=== PATIENT | male | born 1930 | race Caucasian/White ===

== ENCOUNTER 2018-01-15 13:11 | Outpatient (CLI) | payer MEDICARE, OTHER ==
[~2018-01-15] VITALS: Ht 175.3 cm; Wt 75.7 kg
[2018-01-15] MEDS ORDERED: LEVO50TA8 PO (14:21)
[2018-01-15] MEDS ORDERED: ASPI-1265 PO (14:21)
[2018-01-15] MEDS ORDERED: CLOP75TA17 PO (14:21)
[2018-01-15] MEDS ORDERED: LISI40TA4 PO (14:21)
[2018-01-15 14:46] LABS: BASOPHILS % (AUTO) 0.6 % (0-1); EOSINOPHILS # (AUTO) 0.1 X10'3 (0-0.9); EOSINOPHILS % (AUTO) 1.3 % (0-6); LYMPHOCYTES # (AUTO) 1.3 X10'3 (1.1-4.8); LYMPHOCYTES % (AUTO) 17.7 % (21-51); MEAN CORPUSCULAR HEMOGLOBIN 31.4 PG (27.0-31.0); MEAN CORPUSCULAR HGB CONC 33.2 % (33.0-36.5); MEAN CORPUSCULAR VOLUME 94.4 FL (78-98); MONOCYTES # (AUTO) 0.5 X10'3 (0-0.9); MONOCYTES % (AUTO) 7.3 % (2-12); NEUTROPHILS # (AUTO) 5.5 X10'3 (1.8-7.7); NEUTROPHILS % (AUTO) 73.1 % (42-75); PRE OP HEMATOCRIT 43.2 % (42.0-52.0); PRE OP HEMOGLOBIN 14.4 g/dL (14.0-17.9); PRE OP PLATELET COUNT 271 X10'3 (140-440); RED BLOOD COUNT 4.58 X10'6 (4.70-6.10); RED CELL DISTRIBUTION WIDTH 14.8 % (11.5-14.5)
[2018-01-15 15:11] LABS: ALBUMIN 3.6 G/DL (3.4-5.0); ALKALINE PHOSPHATASE 71 IU/L (46-116); BLOOD UREA NITROGEN 30 MG/DL (7-18); BUN/CREATININE RATIO 15.5 (5.4-32.0); CALCIUM 8.9 MG/DL (8.5-10.1); CHLORIDE 106 MMOL/L (99-107); CREATININE 1.94 MG/DL (0.60-1.10); PRE OP ALT 16 U/L (30-65); PRE OP ANION GAP 6 (8-16); PRE OP AST 13 U/L (10-37); PRE OP BILIRUB, TOTAL 0.3 MG/DL (0.0-1.0); PRE OP GLUCOSE 144 MG/DL (70-104); PRE OP POTASSIUM 4.7 MMOL/L (3.4-5.1); PRE OP SODIUM 141 MMOL/L (135-145); TOTAL CARBON DIOXIDE 29.3 MMOL/L (24-32); TOTAL PROTEIN 7.3 G/DL (6.4-8.2); eGFR 33 ML/MIN
[2018-01-18] MEDS ORDERED: ringers solution, lacted 1,000 ML IV SCH (05:00)
[2018-01-18] MEDS ORDERED: famotidine 20mg tablet PO ONE (05:30)
[2018-01-18] MEDS ORDERED: ceFAZolin 1GM/D5W- ADD-VANTAGE 50 ML IV ONE (05:30)
== END 2018-01-15 23:59 | disposition home or self-care (01) ==
LOC: PRE-OP 13:11 → EDSTATUS 01-18 10:15
PROVIDERS: ATTEND Urology
DX: Z01.818 Encounter for other preprocedural examination (principal); N35.8 Other urethral stricture; I10 Essential (primary) hypertension; Z88.8 Allergy status to other drugs, medicaments and biological substances; Z86.73 Personal history of transient ischemic attack (TIA), and cerebral infarction without residual deficits
CPT/HCPCS: 36415; 80053; 84443; 85025

== ENCOUNTER 2018-03-22 10:34 | Day surgery (SDC) | payer MEDICARE, OTHER ==
[2018-03-15 15:40] LABS: BASOPHILS % (AUTO) 0.3 % (0-1); EOSINOPHILS # (AUTO) 0.2 X10'3 (0-0.9); EOSINOPHILS % (AUTO) 4.2 % (0-6); LYMPHOCYTES # (AUTO) 1.2 X10'3 (1.1-4.8); LYMPHOCYTES % (AUTO) 22.7 % (21-51); MEAN CORPUSCULAR HGB CONC 33.2 % (33.0-36.5); MEAN CORPUSCULAR VOLUME 93.1 FL (78-98); MEAN PLATELET VOLUME 8.1 FL (7.4-10.4); MONOCYTES # (AUTO) 0.5 X10'3 (0-0.9); MONOCYTES % (AUTO) 8.9 % (2-12); NEUTROPHILS # (AUTO) 3.5 X10'3 (1.8-7.7); NEUTROPHILS % (AUTO) 63.9 % (42-75); PRE OP HEMATOCRIT 38.1 % (42.0-52.0); PRE OP HEMOGLOBIN 12.6 g/dL (14.0-17.9); PRE OP PLATELET COUNT 234 X10'3 (140-440); RED BLOOD COUNT 4.09 X10'6 (4.70-6.10); RED CELL DISTRIBUTION WIDTH 15.4 % (11.5-14.5)
[2018-03-15 15:50] LABS: PRE OP INR 1.2 INR; PRE OP PROTIME 11.9 SECONDS (9.0-12.0)
[2018-03-15 15:57] LABS: ALBUMIN 3.3 G/DL (3.4-5.0); ALKALINE PHOSPHATASE 73 IU/L (46-116); BLOOD UREA NITROGEN 31 MG/DL (7-18); BUN/CREATININE RATIO 16.1 (5.4-32.0); CALCIUM 8.6 MG/DL (8.5-10.1); CHLORIDE 110 MMOL/L (99-107); CREATININE 1.93 MG/DL (0.60-1.10); PRE OP ALT 10 U/L (30-65); PRE OP ANION GAP 6 (8-16); PRE OP AST 13 U/L (10-37); PRE OP BILIRUB, TOTAL 0.2 MG/DL (0.0-1.0); PRE OP GLUCOSE 110 MG/DL (70-104); PRE OP POTASSIUM 4.5 MMOL/L (3.4-5.1); PRE OP SODIUM 144 MMOL/L (135-145); TOTAL CARBON DIOXIDE 28.5 MMOL/L (24-32); TOTAL PROTEIN 6.7 G/DL (6.4-8.2); eGFR 33 ML/MIN
[~2018-03-22] VITALS: Ht 175.3 cm; Wt 75.3 kg
[2018-03-22] VITALS (9 sets, daily range): BP systolic 144–170; BP diastolic 61–96
[~2018-03-22 10:34] MED LIST: ASPI-1265 PO; ENOX40SY7 SUBCUT; LEVO50TA8 PO; LISI40TA4 PO; RIVA20TA PO; ceFAZolin 1,000 MG in NS 100ML IVPB IV ONE; famotidine 20mg tablet PO ONE; ringers solution, lacted 1,000 ML IV SCH
[2018-03-22] MEDS ORDERED: sevoflurane 250ml liquid IH ONE (14:23)
[2018-03-22] MEDS ORDERED: midazolam 2 mg/2 ml injection ONE (14:24)
[2018-03-22] MEDS ORDERED: fentaNYL/PF 50MCG/1 ML 2ML syringe ONE (14:24)
[2018-03-22] MEDS ORDERED: fentaNYL/PF 50MCG/1 ML 2ML syringe IV PRN ×2 (14:40)
[2018-03-22] MEDS ORDERED: labetalol 20mg/4ml (5mg/ml) syringe IV PRN (14:40)
[2018-03-22] MEDS ORDERED: morphine 4 MG/ML inj SYRINge IV PRN ×2 (14:40)
[2018-03-22] MEDS ORDERED: hydrALAZINE 20mg/ml inj. IV PRN (14:40)
[2018-03-22] MEDS ORDERED: ondansetron/PF 4mg/2ml inj IV PRN (14:40)
[2018-03-22] MEDS ORDERED: ringers solution, lacted 1,000 ML IV SCH (14:40)
[2018-03-22] MEDS ORDERED: propofol inj 20 ML IV ONE (14:55)
[2018-03-22] MEDS ORDERED: naloxone 0.4 mg/ml inj ONE (14:56)
== END 2018-03-22 17:04 | disposition home or self-care (01) ==
LOC: PRE-OP 10:34
PROVIDERS: ATTEND Urology
DX: N35.8 Other urethral stricture (principal); I11.9 Hypertensive heart disease without heart failure; I25.10 Atherosclerotic heart disease of native coronary artery without angina pectoris; I48.91 Unspecified atrial fibrillation; E03.9 Hypothyroidism, unspecified; Z92.3 Personal history of irradiation; Z90.49 Acquired absence of other specified parts of digestive tract; Z95.0 Presence of cardiac pacemaker; Z92.21 Personal history of antineoplastic chemotherapy; Z79.82 Long term (current) use of aspirin; Z86.73 Personal history of transient ischemic attack (TIA), and cerebral infarction without residual deficits; Z85.46 Personal history of malignant neoplasm of prostate; Z88.8 Allergy status to other drugs, medicaments and biological substances; Z79.899 Other long term (current) drug therapy; Z98.890 Other specified postprocedural states; Z83.3 Family history of diabetes mellitus; Z80.42 Family history of malignant neoplasm of prostate
CPT/HCPCS: 36415; 52281; 71046; 80053; 85025; 85610; 85730; A4344; C1769; J0690; J2250; J2310; J2704; J3010; J7030; J7120; A4402; J3490

== ENCOUNTER 2018-08-20 00:19 | Emergency (ER) | payer MEDICARE, OTHER ==
[~2018-08-20] VITALS: Ht 182.9 cm; Wt 81.8 kg
[~2018-08-20 00:19] MED LIST changes: -ceFAZolin 1,000 MG in NS 100ML IVPB IV ONE; -famotidine 20mg tablet PO ONE; -ringers solution, lacted 1,000 ML IV SCH
[2018-08-20 01:06] LABS: ISTAT HGB 12.6 g/dl (14.0-18.0); ISTAT IONIZED CALCIUM 1.31 mmol/L (1.03-1.32); ISTAT K 4.1 mmol/L (3.5-5.1); POC BUN/CREATININE RATIO 19.5 (5.4-32.0)
--- NOTE | 2018-08-20 02:22 | NUR ---
Per organ donor network, the patient is suitable for tissue donation and will follow up in 1 hour. and son have left the bedside and appropriate paperwork is signed for release to mortuary.
--- NOTE | 2018-08-20 02:28 | NUR ---
Patient presents by EMS after having CP at home and becoming unresponsive. Patient has agonal breathing and is being bagged by medics on arrival. Patient was intubated. 150mg amiodarone given IV push at 0026. At approximately 0032 lost his pulse. High quality CPR was intiated and approximately 5 minutes later his pulse returned. At approximately 0045 the patient had a very short run of what appeared to be V-tach and then returned to a wide QRS complex rhythm with no pulse and high quality CPR was resumed for 14 minutes until the code was called at 0059. See code blue documentation for specific times and medications.
[2018-08-20] MEDS ORDERED: LIDOcaine 2% (20 mg/ml) 5ml cardiac syringe ONE (12:00)
[2018-08-20] MEDS ORDERED: calcium chloride 100 MG/1 ML inj IV ONE (12:00)
[2018-08-20] MEDS ORDERED: etomidate 2mg/ml inj. ONE (12:00)
[2018-08-20] MEDS ORDERED: dextrose 50%-water 50ml dispensing syringe IV ONE (12:00)
[2018-08-20] MEDS ORDERED: NORepinephrine 1 mg/ml inj IV ONE (12:00)
[2018-08-20] MEDS ORDERED: sodium bicarbonate (8.4%) 1 mEq/ml syringe ONE (12:00)
[2018-08-20] MEDS ORDERED: sod chloride 0.9% 10ml flush syringe IV ONE ×2 (12:00)
[2018-08-20] MEDS ORDERED: rocuronium 10mg/ml inj IV ONE (12:00)
[2018-08-20] MEDS ORDERED: amiodarone 50MG/ML inj IV ONE (12:00)
[2018-08-20] MEDS ORDERED: epiNEPHrine 0.1mg/ml 10ml syringe ONE (12:00)
== END 2018-08-20 04:04 | disposition expired ==
LOC: ER 00:20
DX: I46.9 Cardiac arrest, cause unspecified (principal); I25.10 Atherosclerotic heart disease of native coronary artery without angina pectoris; R07.89 Other chest pain; Z95.0 Presence of cardiac pacemaker; Z86.73 Personal history of transient ischemic attack (TIA), and cerebral infarction without residual deficits; Z88.6 Allergy status to analgesic agent; Z88.8 Allergy status to other drugs, medicaments and biological substances; Z79.82 Long term (current) use of aspirin; Z79.899 Other long term (current) drug therapy
CPT/HCPCS: 31500; 36556; 80047; 92950; 94760; 99291; J0171; J0282; J2001; J3490